=== PATIENT | female | born 1940 | race Caucasian/White ===

== ENCOUNTER 2016-07-31 20:52 | Inpatient (IN) | payer OTHER, MEDICARE ==
[~2016-07-31] VITALS: Ht 149.9 cm; Wt 51.0 kg
[~2016-07-31 20:52] MED LIST: CLARITIN10 M3 PO; COLACE100 MG PO; CYANOCOBAL1000 MCG/2 IM; CYANOCOBALAM1000 MCG PO; GABAPENTIN100 MG PO; LEUCOVORIN CALCI5 MG PO; METHOTREXATE2.5 MG PO; MUCINEX600 MG PO; MULTI-DELYN473 M1 PO; PANTOPRAZOLE SO40 MG PO; PROLIA60 MG/1 ML SC; TACROLIMUS ANH0.5 MG PO; TACROLIMUS ANHYD1 MG PO; TRAMADOL HCL50 MG PO; TYLENOL REGULA325 MG PO; VITAMIN D-32000 UNI2 PO; ZOFRAN4 MG PO; ZOFRAN8 MG PO
[2016-07-31 21:47] LABS: MCHC 31.9 G/DL (30.0-36.0); MCV 100.4 FL (83-99); MEAN PLAT.VOLUME 11.3 uM^3 (9.5-12.4); PLATELET COUNT 80 K/uL (156-360); RBC DIS.WIDTH-CV 15.9 % (11.8-14.6); RBC DIS.WIDTH-SD 57.8 % (39-53); RED BLOOD COUNT 2.59 M/uL (3.80-5.20); WHITE BLOOD COUNT 4.3 K/uL (4.1-10.2)
[2016-07-31 21:59] LABS: CHLORIDE 109 mEq/L (99-109); POTASSIUM 4.8 mEq/L (3.7-5.4); SODIUM 139 mEq/L (136-147)
[2016-07-31 22:01] LABS: GLUCOSE 93 mg/dL (70-99)
[2016-07-31 22:02] LABS: ANION GAP 13 MEQ/L (2-14)
[2016-07-31 22:03] LABS: TOTAL BILIRUBIN 0.6 mg/dL (0.0-1.0)
[2016-07-31 22:04] LABS: ALKALINE PHOSPHATASE 66 IU/L (3-129)
[2016-07-31 22:05] LABS: GFR ESTIMATE (CALCULATED) 9 mL/min/
[2016-07-31 22:06] LABS: UREA NITROGEN (BUN) 81 mg/dL (9-23)
[2016-07-31 22:09] LABS: TROP-I INTERPRETATION NEGATIVE; TROPONIN-I 0.02 ng/mL (0.0-0.30)
[2016-07-31 23:47] LABS: ADD MIUA? YES; BILIRUBIN NEGATIVE; BLOOD MODERATE; COLOR YELLOW ((YELLOW)); GLUCOSE (STRIP) NEGATIVE; KETONES NEGATIVE; LEUKOCYTES SMALL; NITRITE NEGATIVE; PROTEIN (STRIP) 100; SPECIFIC GRAVITY 1.012 (1.000-1.030); UROBILINOGEN 0.2 MG/DL (0.2-1.0)
[2016-07-31] MEDS ORDERED: VITAMIN B-1000 MCG/1 PO (23:55)
[2016-07-31] MEDS ORDERED: VITAMIN D33000 UNIT PO (23:56)
[2016-07-31] MEDS ORDERED: CYCLOSPORINE25 M3 PO (23:59)
[2016-07-31] MEDS ORDERED: NULOJIX250 MG IV (23:59)
[2016-08-01] VITALS (13 sets, daily range): BP systolic 90–164; BP diastolic 55–89
[2016-08-01] LABS: BACTERIA NONE SEEN /HPF; EPITHELIAL CELLS RARE /HPF; HYALINE CASTS 0-5 /LPF; MUCUS NONE SEEN /LPF; RED BLOOD CELLS 0-5 /HPF (0-5); UCUL ADDED? NO; WHITE BLOOD CELLS 30-40 /HPF (0-5)
[2016-08-01] MEDS ORDERED: CARVEDILOL3.125 MG PO
[2016-08-01] MEDS ORDERED: CLONIDINE HCL0.1 MG PO
[2016-08-01] MEDS ORDERED: METOPROLOL SUCC25 MG PO
[2016-08-01 03:50] LABS: INFLUENZA A VIRAL ANTIGEN NEGATIVE; INFLUENZA B VIRAL ANTIGEN NEGATIVE
[2016-08-01 07:32] LABS: EOSINOPHIL COUNT 0.3 K/uL (0-0.3); HEMATOCRIT 21.1 % (36.0-46.0); IMMATURE GRANULOCYTE (%) 0.8 % (0.0-0.7); INSTRUMENT ABS NEUTROPHIL CT 1.4 K/uL; LYMPHOCYTE COUNT 1.9 K/uL (1.0-2.8); MCH 33.3 PG (29.0-34.0); MCHC 32.2 G/DL (30.0-36.0); MCV 103.4 FL (83-99); MEAN PLAT.VOLUME 11.1 uM^3 (9.5-12.4); MONOCYTE (%) 1.9 % (3-12); MONOCYTE COUNT 0.1 K/uL (0-0.8); NEUTROPHIL (%) 38.5 % (45-76); NEUTROPHIL COUNT 1.4 K/uL (1.8-6.4); PLATELET COUNT 64 K/uL (156-360); RBC DIS.WIDTH-SD 59.4 % (39-53); WHITE BLOOD COUNT 3.7 K/uL (4.1-10.2)
[2016-08-01 07:34] LABS: RED BLOOD COUNT 2.04 M/uL (3.80-5.20)
[2016-08-01 07:37] LABS: ALKALINE PHOSPHATASE 50 IU/L (3-129); ANION GAP 9 MEQ/L (2-14); CHLORIDE 113 MEQ/L (99-109); GFR ESTIMATE (CALCULATED) 10 mL/min/; GLUCOSE 93 mg/dL (70-99); POTASSIUM 4.5 MEQ/L (3.7-5.4); SAMPLE HEMOLYSIS CHECK 0; SAMPLE ICTERIC CHECK 0; SAMPLE LIPEMIA CHECK 0; SODIUM 141 MEQ/L (136-147); TOTAL BILIRUBIN 0.4 MG/DL (0.0-1.0); UREA NITROGEN (BUN) 72 mg/dL (9-23)
[2016-08-01 08:47] LABS: INTERNAL CONTROL VALID? YES
[2016-08-01 15:14] LABS: METH RESISTANT S AUREUS PCR NEGATIVE (NEGATIVE)
[2016-08-01 15:17] LABS: PROBE CHECK PASS; SPECIMEN PROCESSING CONTROL PASS
[2016-08-02 00:35] LABS: HEMATOCRIT 32.3 % (36.0-46.0); MCV 94.4 FL (83-99)
[2016-08-02 05:47] LABS: HEMATOCRIT 32.3 % (36.0-46.0); MCHC 32.5 G/DL (30.0-36.0); MCV 95.3 FL (83-99); MEAN PLAT.VOLUME 11.2 uM^3 (9.5-12.4); PLATELET COUNT 57 K/uL (156-360); RBC DIS.WIDTH-CV 17.2 % (11.8-14.6); RBC DIS.WIDTH-SD 58.8 % (39-53); WHITE BLOOD COUNT 3.3 K/uL (4.1-10.2)
[2016-08-02 06:17] LABS: ANION GAP 9 MEQ/L (2-14); CHLORIDE 110 MEQ/L (99-109); GFR ESTIMATE (CALCULATED) 10 mL/min/; GLOBULINS 2.7 G/DL (2.3-3.5); GLUCOSE 86 mg/dL (70-99); IRON 47 MCG/DL (35-150); POTASSIUM 3.9 MEQ/L (3.7-5.4); SAMPLE HEMOLYSIS CHECK 0; SAMPLE ICTERIC CHECK 0; SAMPLE LIPEMIA CHECK 0; SODIUM 136 MEQ/L (136-147); UREA NITROGEN (BUN) 66 mg/dL (9-23)
[2016-08-02 06:25] LABS: RED BLOOD COUNT 3.39 M/uL (3.80-5.20)
[2016-08-02 08:15] LABS: ABS NEUTROPHIL COUNT 1.9; ANISOCYTOSIS 1+; ATYPICAL LYMPHOCYTE 5.2 %; BASOPHILS 1.7 %; BURR CELLS 3+; EOSINOPHIL ABS CT 0.4; EOSINOPHILS 11.3 % (0-5.0); INSTRUMENT ABS NEUTROPHIL CT 1.5 K/uL; LYMPHOCYTES 24.4 % (15.0-45.0); MACROCYTES 1+; NUCLEATED RBC'S 1.7; OVALOCYTES 2+; PLAT.SUFFICIENCY DECREASED; POIKILOCYTOSIS 3+; SEG.NEUTROPHILS 56.5 % (46.0-76.0); SMUDGE CELLS 15.7; TEAR DROP CELLS 1+
[2016-08-02 08:40] VITALS: BP 168/77
[2016-08-02 08:45] LABS: FERRITIN 207 NG/ML (10-291)
[2016-08-02 08:48] LABS: VANCOMYCIN, TROUGH 9.7 MCG/ML (10-20)
[2016-08-02 13:13] VITALS: BP 134/81
[2016-08-02 16:21] LABS: C DIFF TOXIN NEGATIVE (NEGATIVE)
[2016-08-02 16:32] LABS: PROBE CHECK PASS; SPECIMEN PROCESSING CONTROL PASS
[2016-08-02 20:00] VITALS: BP 148/77
[2016-08-03] VITALS: BP 142/70
[2016-08-03 07:56] VITALS: BP 136/71
[2016-08-03 09:46] LABS: HEMATOCRIT 35.4 % (36.0-46.0); MCH 31.9 PG (29.0-34.0); MCHC 34.5 G/DL (30.0-36.0); MCV 92.4 FL (83-99); MEAN PLAT.VOLUME 11.3 uM^3 (9.5-12.4); PLATELET COUNT 51 K/uL (156-360); RBC DIS.WIDTH-SD 55.7 % (39-53); RED BLOOD COUNT 3.83 M/uL (3.80-5.20)
[2016-08-03 10:05] LABS: WHITE BLOOD COUNT 5.9 K/uL (4.1-10.2)
[2016-08-03 10:52] LABS: ANION GAP 17 MEQ/L (2-14); CHLORIDE 108 MEQ/L (99-109); GFR ESTIMATE (CALCULATED) 11 mL/min/; GLUCOSE 94 mg/dL (70-99); SAMPLE HEMOLYSIS CHECK 0; SAMPLE ICTERIC CHECK 0; SAMPLE LIPEMIA CHECK 0; SODIUM 139 MEQ/L (136-147); UREA NITROGEN (BUN) 62 mg/dL (9-23)
[2016-08-03 12:08] LABS: BASE EXCESS -6.4 mEq/L (-3 to +3); BICARBONATE 18.1 mEq/L (22-26); METHEMOGLOBIN 1.4 % (0-1.5); PCO2 32 mm Hg (35-45); PO2 74 mm Hg (80-100); pH 7.36 (7.35-7.45)
[2016-08-03 12:09] LABS: COMMENTS - BLOOD GASES A+C+; FI02 0.21 %; SITE RR; TOTAL RESP RATE 16 resp/min
[2016-08-03 13:42] LABS: INTERNAL CONTROL VALID? YES
[2016-08-03 14:59] VITALS: BP 129/71
[2016-08-03 20:00] VITALS: BP 128/72
[2016-08-04] VITALS: BP 126/74
[2016-08-04 07:57] VITALS: BP 136/78
[2016-08-04 09:42] LABS: HEMATOCRIT 34.3 % (36.0-46.0); MCH 30.5 PG (29.0-34.0); MCHC 32.4 G/DL (30.0-36.0); MCV 94.2 FL (83-99); MEAN PLAT.VOLUME 11.6 uM^3 (9.5-12.4); PLATELET COUNT 57 K/uL (156-360); RBC DIS.WIDTH-CV 16.9 % (11.8-14.6); RBC DIS.WIDTH-SD 56.8 % (39-53); RED BLOOD COUNT 3.64 M/uL (3.80-5.20); WHITE BLOOD COUNT 5.4 K/uL (4.1-10.2)
[2016-08-04 10:49] LABS: ANION GAP 14 MEQ/L (2-14); CHLORIDE 107 MEQ/L (99-109); GFR ESTIMATE (CALCULATED) 10 mL/min/; GLUCOSE 77 mg/dL (70-99); POTASSIUM 4.1 MEQ/L (3.7-5.4); SAMPLE HEMOLYSIS CHECK 0; SAMPLE ICTERIC CHECK 0; SAMPLE LIPEMIA CHECK 0; SODIUM 137 MEQ/L (136-147); UREA NITROGEN (BUN) 61 mg/dL (9-23)
[2016-08-04 15:03] VITALS: BP 128/62
[2016-08-04 19:24] VITALS: BP 134/78
[2016-08-05 06:13] LABS: HEMATOCRIT 33.5 % (36.0-46.0); MCH 31.7 PG (29.0-34.0); MCHC 33.7 G/DL (30.0-36.0); MCV 94.1 FL (83-99); MEAN PLAT.VOLUME 11.4 uM^3 (9.5-12.4); PLATELET COUNT 59 K/uL (156-360); RBC DIS.WIDTH-SD 56.9 % (39-53); RED BLOOD COUNT 3.56 M/uL (3.80-5.20); WHITE BLOOD COUNT 5.5 K/uL (4.1-10.2)
[2016-08-05 06:38] LABS: ANION GAP 13 MEQ/L (2-14); CHLORIDE 104 MEQ/L (99-109); GFR ESTIMATE (CALCULATED) 10 mL/min/; GLUCOSE 83 mg/dL (70-99); POTASSIUM 4.4 MEQ/L (3.7-5.4); SAMPLE HEMOLYSIS CHECK 0; SAMPLE ICTERIC CHECK 0; SAMPLE LIPEMIA CHECK 0; SODIUM 137 MEQ/L (136-147); UREA NITROGEN (BUN) 61 mg/dL (9-23)
[2016-08-05 07:54] VITALS: BP 123/74; BP 147/83
[2016-08-05 14:03] LABS: ALBUMIN 2.97 G/DL (3.6-4.9)
[2016-08-05 14:04] LABS: ALPHA-1 GLOBULIN 0.27 G/DL (0.15-0.40); ALPHA-1 PERCENT 4.9 %; ALPHA-2 GLOBULIN 0.72 G/DL (0.45-0.85); ALPHA-2 PERCENT 13.1 %; BETA PERCENT 12.6 %; GAMMA PERCENT 15.4 %; SERUM GEL NO. 61-6
[2016-08-05 16:08] VITALS: BP 108/67
[2016-08-05 23:31] VITALS: BP 140/96
[2016-08-06 07:54] VITALS: BP 133/71
[2016-08-06 10:10] LABS: ANION GAP 16 MEQ/L (2-14); CHLORIDE 102 MEQ/L (99-109); GFR ESTIMATE (CALCULATED) 10 mL/min/; GLUCOSE 76 mg/dL (70-99); POTASSIUM 4.4 MEQ/L (3.7-5.4); SAMPLE HEMOLYSIS CHECK 0; SAMPLE ICTERIC CHECK 0; SAMPLE LIPEMIA CHECK 0; SODIUM 138 MEQ/L (136-147); UREA NITROGEN (BUN) 65 mg/dL (9-23)
[2016-08-06 13:09] LABS: IFE GEL NO. 59-1
[2016-08-06 15:04] LABS: ANION GAP 14 MEQ/L (2-14); CHLORIDE 102 MEQ/L (99-109); GFR ESTIMATE (CALCULATED) 10 mL/min/; POTASSIUM 4.6 MEQ/L (3.7-5.4); SAMPLE HEMOLYSIS CHECK 0; SAMPLE ICTERIC CHECK 0; SAMPLE LIPEMIA CHECK 0; SODIUM 137 MEQ/L (136-147); UREA NITROGEN (BUN) 68 mg/dL (9-23)
[2016-08-06 15:07] LABS: GLUCOSE 105 mg/dL (70-99)
[2016-08-06 15:30] VITALS: BP 136/70
[2016-08-06 23:30] VITALS: BP 115/55
[2016-08-07 07:35] LABS: ANION GAP 17 MEQ/L (2-14); CHLORIDE 101 MEQ/L (99-109); GFR ESTIMATE (CALCULATED) 9 mL/min/; GLUCOSE 79 mg/dL (70-99); POTASSIUM 4.9 MEQ/L (3.7-5.4); SAMPLE HEMOLYSIS CHECK 0; SAMPLE ICTERIC CHECK 0; SAMPLE LIPEMIA CHECK 0; SODIUM 137 MEQ/L (136-147); UREA NITROGEN (BUN) 72 mg/dL (9-23)
[2016-08-07 07:40] LABS: HEMATOCRIT 32.9 % (36.0-46.0); MCH 30.7 PG (29.0-34.0); MCHC 32.5 G/DL (30.0-36.0); MCV 94.5 FL (83-99); MEAN PLAT.VOLUME 11.6 uM^3 (9.5-12.4); RBC DIS.WIDTH-CV 16.7 % (11.8-14.6); RBC DIS.WIDTH-SD 57.2 % (39-53); RED BLOOD COUNT 3.48 M/uL (3.80-5.20)
[2016-08-07 07:42] LABS: PLATELET COUNT 109 K/uL (156-360); WHITE BLOOD COUNT 7.7 K/uL (4.1-10.2)
[2016-08-07 07:52] LABS: INTACT PARATHYROID HORMONE 390 pg/mL (10-69)
[2016-08-07 08:08] VITALS: BP 103/61
[2016-08-07 11:20] LABS: AHBS INDEX 0.62; HEPATITIS B SURFACE ANTIBODY Nonreactive; HPCA INDEX 0.09
[2016-08-07 11:36] LABS: ANTI-HEPATITIS B CORE (TOTAL) Nonreactive; HBCT INDEX 0.08
[2016-08-07 13:30] VITALS: BP 124/71
[2016-08-07 23:55] VITALS: BP 99/57
[2016-08-08 03:50] VITALS: BP 104/59
[2016-08-08 08:00] VITALS: BP 116/58
[2016-08-08 08:55] LABS: CHLORIDE 101 mEq/L (99-109); SODIUM 138 mEq/L (136-147)
[2016-08-08 08:57] LABS: POTASSIUM 3.7 mEq/L (3.7-5.4)
[2016-08-08 08:58] LABS: GLUCOSE 137 mg/dL (70-99)
[2016-08-08 08:59] LABS: ANION GAP 13 MEQ/L (2-14)
[2016-08-08 09:01] LABS: GFR ESTIMATE (CALCULATED) 11 mL/min/
[2016-08-08 09:02] LABS: UREA NITROGEN (BUN) 43 mg/dL (9-23)
[2016-08-08 16:03] VITALS: BP 120/64
[2016-08-08 19:59] VITALS: BP 106/69
[2016-08-08 23:48] VITALS: BP 116/65
[2016-08-09 03:42] VITALS: BP 110/56
[2016-08-09 06:07] LABS: ANION GAP 10 MEQ/L (2-14); CHLORIDE 99 MEQ/L (99-109); GFR ESTIMATE (CALCULATED) 13 mL/min/; GLUCOSE 117 mg/dL (70-99); SAMPLE HEMOLYSIS CHECK 0; SAMPLE ICTERIC CHECK 0; SAMPLE LIPEMIA CHECK 0; SODIUM 137 MEQ/L (136-147); UREA NITROGEN (BUN) 26 mg/dL (9-23)
[2016-08-09 08:11] VITALS: BP 110/69
[2016-08-09 11:26] LABS: NRBC (%) 0.5 /100 WBC (0-0)
[2016-08-09 11:57] LABS: ABS NEUTROPHIL COUNT 4.2; ANISOCYTOSIS 1+; EOSINOPHIL ABS CT 0; HEMATOCRIT 31.9 % (36.0-46.0); MACROCYTES 1+; MCH 31.1 PG (29.0-34.0); MCHC 31.3 G/DL (30.0-36.0); MCV 99.1 FL (83-99); METAMYELOCYTES 1.8 %; OVALOCYTES 1+; PLAT.SUFFICIENCY ADEQUATE; PLATELET COUNT 208 K/uL (156-360); POIKILOCYTOSIS 1+; RBC DIS.WIDTH-SD 60.6 % (39-53); RED BLOOD COUNT 3.22 M/uL (3.80-5.20); SEG.NEUTROPHILS 55.3 % (46.0-76.0); SMUDGE CELLS 20.5; WHITE BLOOD COUNT 6.6 K/uL (4.1-10.2)
[2016-08-09 12:07] VITALS: BP 123/74
[2016-08-09 20:41] VITALS: BP 128/70
[2016-08-10 04:08] VITALS: BP 122/62
[2016-08-10 08:00] VITALS: BP 114/58
[2016-08-10 11:23] VITALS: BP 109/88
[2016-08-10 16:48] VITALS: BP 123/62
[2016-08-10 23:16] VITALS: BP 119/67
[2016-08-11 02:46] VITALS: BP 130/71
[2016-08-11 08:27] VITALS: BP 129/80
[2016-08-11 08:40] LABS: HEMATOCRIT 33.6 % (36.0-46.0); MCH 31.4 PG (29.0-34.0); MCHC 31.5 G/DL (30.0-36.0); MCV 99.4 FL (83-99); MEAN PLAT.VOLUME 10.8 uM^3 (9.5-12.4); NRBC (%) 0.5 /100 WBC (0-0); RBC DIS.WIDTH-CV 17.2 % (11.8-14.6); RBC DIS.WIDTH-SD 61.2 % (39-53); RED BLOOD COUNT 3.38 M/uL (3.80-5.20)
[2016-08-11 08:41] LABS: PLATELET COUNT 306 K/uL (156-360); WHITE BLOOD COUNT 9.2 K/uL (4.1-10.2)
[2016-08-11 08:51] LABS: ANION GAP 11 MEQ/L (2-14); CHLORIDE 94 MEQ/L (99-109); GFR ESTIMATE (CALCULATED) 10 mL/min/; POTASSIUM 4.2 MEQ/L (3.7-5.4); SAMPLE HEMOLYSIS CHECK 0; SAMPLE ICTERIC CHECK 0; SAMPLE LIPEMIA CHECK 0; SODIUM 133 MEQ/L (136-147); UREA NITROGEN (BUN) 27 mg/dL (9-23)
[2016-08-11 08:55] LABS: GLUCOSE 78 mg/dL (70-99)
[2016-08-11 11:38] VITALS: BP 132/78
[2016-08-11 17:22] VITALS: BP 136/89
[2016-08-11 23:42] VITALS: BP 123/61
[2016-08-12 03:58] VITALS: BP 128/67
[2016-08-12 08:57] LABS: HEMATOCRIT 29.4 % (36.0-46.0); MCH 30.6 PG (29.0-34.0); MCHC 31.3 G/DL (30.0-36.0); MCV 97.7 FL (83-99); MEAN PLAT.VOLUME 10.4 uM^3 (9.5-12.4); NRBC (%) 0.5 /100 WBC (0-0); PLATELET COUNT 285 K/uL (156-360); RBC DIS.WIDTH-CV 17.2 % (11.8-14.6); RBC DIS.WIDTH-SD 59.9 % (39-53); RED BLOOD COUNT 3.01 M/uL (3.80-5.20)
[2016-08-12 08:58] LABS: WHITE BLOOD COUNT 6.4 K/uL (4.1-10.2)
[2016-08-12 09:39] LABS: ANION GAP 9 MEQ/L (2-14); CHLORIDE 97 MEQ/L (99-109); GFR ESTIMATE (CALCULATED) 9 mL/min/; SAMPLE HEMOLYSIS CHECK 0; SAMPLE ICTERIC CHECK 0; SAMPLE LIPEMIA CHECK 0; SODIUM 134 MEQ/L (136-147); UREA NITROGEN (BUN) 33 mg/dL (9-23)
[2016-08-12 09:41] LABS: GLUCOSE 109 mg/dL (70-99)
[2016-08-12 12:59] VITALS: BP 152/71
[2016-08-12 16:09] VITALS: BP 113/69
[2016-08-12 20:00] VITALS: BP 116/68
[2016-08-12 23:20] VITALS: BP 102/73
[2016-08-13 04:39] VITALS: BP 110/68
[2016-08-13 08:29] VITALS: BP 120/71
[2016-08-13 12:08] VITALS: BP 118/68
[2016-08-13] MEDS ORDERED: ARANESP60 MCG/0.3 IV (12:42)
[2016-08-13] MEDS ORDERED: ACYCLOVIR200 MG PO (12:43)
[2016-08-13] MEDS ORDERED: MYCOSTATIN 100,60 ML PO (12:43)
[2016-08-13] MEDS ORDERED: FUROSEMIDE40 MG PO (12:44)
[2016-08-13] MEDS ORDERED: FLORASTOR250 MG PO (12:45)
[2016-08-13] MEDS ORDERED: LOPERAMIDE2 MG PO (12:45)
[2016-08-13] MEDS ORDERED: TACROLIMUS ANH0.5 MG PO (12:46)
[2016-08-13] MEDS ORDERED: FAMOTIDINE20 MG PO (12:46)
== END 2016-08-13 16:24 | DRG 682 ==
LOC: EME 20:52 → EDOF 23:22 → 5SOUTH 23:22
PROVIDERS: Emergency Medicine; Internal Medicine; Nurse Practitioner Adult Health; Physician Assistant Medical
PROC: 5A1D60Z (ICD-10-PCS; principal; 2016-08-07)
PROC: 02HV33Z Insertion of Infusion Device into Superior Vena Cava, Percutaneous Approach (ICD-10-PCS; principal; 2016-08-07)
DX: N17.9 Acute kidney failure, unspecified (principal); T45.1X5A Adverse effect of antineoplastic and immunosuppressive drugs, initial encounter; J18.9 Pneumonia, unspecified organism; I12.0 Hypertensive chronic kidney disease with stage 5 chronic kidney disease or end stage renal disease; E11.22 Type 2 diabetes mellitus with diabetic chronic kidney disease; N18.6 End stage renal disease; D61.818 Other pancytopenia; E78.00 Pure hypercholesterolemia, unspecified; R64 Cachexia; Z94.2 Lung transplant status; E78.5 Hyperlipidemia, unspecified; Z96.641 Presence of right artificial hip joint; D62 Acute posthemorrhagic anemia; J84.10 Pulmonary fibrosis, unspecified; E87.2 Acidosis; N93.9 Abnormal uterine and vaginal bleeding, unspecified; N85.00 Endometrial hyperplasia, unspecified; D61.811 Other drug-induced pancytopenia
CPT/HCPCS: 36600; 71010; 71020; 71250; 74000; 76856; 80048; 80048 91; 80053; 80069; 80158 90; 80202; 81003; 82272; 82607; 82728; 82746; 82803; 83540; 83605; 83883 90; 83970; 84165; 84466; 84484; 85014; 85018; 85025; 85027; 86334; 86704; 86706; 86803; 86900; 86901; 86920; 87040; 87070; 87106; 87205; 87340; 87449; 87493; 87502; 87506; 87641; 93005; 93970; 94799; 99202; 99281; 99285; C1750; C1894; J0456; J0690; J0692; J0881; J1270; J1644; J1650; J1940; J2250; J2405; J2997; J3010; J3370; J7030; J7040; J7050; J7507; J7515; P9016; P9047; S0020

== ENCOUNTER 2016-09-03 07:29 | Day surgery (SDC) | payer OTHER, MEDICARE ==
[~2016-09-03] VITALS: Ht 149.9 cm; Wt 53.0 kg
[~2016-09-03 07:29] MED LIST changes: +ACYCLOVIR200 MG PO; +ARANESP60 MCG/0.3 IV; +CARVEDILOL3.125 MG PO; +CLONIDINE HCL0.1 MG PO; +CYCLOSPORINE25 M3 PO; +FAMOTIDINE20 MG PO; +FLORASTOR250 MG PO; +FUROSEMIDE40 MG PO; +LOPERAMIDE2 MG PO; +METOPROLOL SUCC25 MG PO; +MYCOSTATIN 100,60 ML PO; +NULOJIX250 MG IV; +VITAMIN B-1000 MCG/1 PO; +VITAMIN D33000 UNIT PO
[2016-09-03 10:03] LABS: METH RESISTANT S AUREUS PCR NEGATIVE (NEGATIVE); PROBE CHECK PASS; SPECIMEN PROCESSING CONTROL PASS
[2016-09-09] MEDS ORDERED: MIDODRINE HCL5 MG PO (10:33)
== END 2016-09-03 10:42 ==
LOC: CATH 07:29
PROVIDERS: Surgery
DX: T82.41XA Breakdown (mechanical) of vascular dialysis catheter, initial encounter (principal); I12.9 Hypertensive chronic kidney disease with stage 1 through stage 4 chronic kidney disease, or unspecified chronic kidney disease; N18.9 Chronic kidney disease, unspecified; Z99.2 Dependence on renal dialysis; D61.818 Other pancytopenia; E78.5 Hyperlipidemia, unspecified; Z94.2 Lung transplant status; Z92.25 Personal history of immunosuppression therapy; I25.10 Atherosclerotic heart disease of native coronary artery without angina pectoris; Z95.5 Presence of coronary angioplasty implant and graft; Z88.8 Allergy status to other drugs, medicaments and biological substances; Y84.8 Other medical procedures as the cause of abnormal reaction of the patient, or of later complication, without mention of misadventure at the time of the procedure
CPT/HCPCS: 87641; C1750; J0690; J1644; J2250; J3010; S0020

== ENCOUNTER 2016-09-10 08:21 | Day surgery (SDC) | payer OTHER, MEDICARE ==
[~2016-09-10 08:21] MED LIST changes: +MIDODRINE HCL5 MG PO
[2016-09-10 10:47] LABS: METH RESISTANT S AUREUS PCR NEGATIVE (NEGATIVE)
[2016-09-10 10:53] LABS: PROBE CHECK PASS; SPECIMEN PROCESSING CONTROL PASS
== END 2016-09-10 12:20 ==
LOC: CATH 08:21
PROVIDERS: Surgery
DX: T82.524A Displacement of infusion catheter, initial encounter (principal); I12.0 Hypertensive chronic kidney disease with stage 5 chronic kidney disease or end stage renal disease; N18.6 End stage renal disease; Z99.2 Dependence on renal dialysis; Z88.6 Allergy status to analgesic agent; Z88.8 Allergy status to other drugs, medicaments and biological substances; Y83.1 Surgical operation with implant of artificial internal device as the cause of abnormal reaction of the patient, or of later complication, without mention of misadventure at the time of the procedure
CPT/HCPCS: 87641; C1750; J0690; J1644; J2250; J2405; J3010; S0020

== ENCOUNTER 2016-09-30 10:33 | Inpatient (IN) | payer OTHER, MEDICARE ==
[~2016-09-30] VITALS: Ht 144.8 cm; Wt 52.6 kg
[2016-09-30 12:07] VITALS: BP 161/88
[2016-09-30 12:17] LABS: HEMATOCRIT 28.9 % (36.0-46.0); MCH 33.8 PG (29.0-34.0); MCHC 30.4 G/DL (30.0-36.0); MCV 111.2 FL (83-99); MEAN PLAT.VOLUME 10.4 uM^3 (9.5-12.4); PLATELET COUNT 117 K/uL (156-360); WHITE BLOOD COUNT 7.7 K/uL (4.1-10.2)
[2016-09-30 12:27] LABS: METH RESISTANT S AUREUS PCR NEGATIVE (NEGATIVE)
[2016-09-30 12:28] LABS: PROBE CHECK PASS; SPECIMEN PROCESSING CONTROL PASS
[2016-09-30 20:48] VITALS: BP 131/58
[2016-09-30 23:45] VITALS: BP 108/53
[2016-10-01 04:36] VITALS: BP 134/62
[2016-10-01 07:00] VITALS: BP 131/62
[2016-10-01 10:50] VITALS: BP 129/59
[2016-10-01 11:04] LABS: ANION GAP 10 MEQ/L (2-14); CHLORIDE 105 MEQ/L (99-109); POTASSIUM 4.1 MEQ/L (3.7-5.4); SAMPLE HEMOLYSIS CHECK 0; SAMPLE ICTERIC CHECK 0; SAMPLE LIPEMIA CHECK 0; SODIUM 144 MEQ/L (136-147)
[2016-10-01 11:10] LABS: GFR ESTIMATE (CALCULATED) 18 mL/min/; GLUCOSE 94 mg/dL (70-99); UREA NITROGEN (BUN) 15 mg/dL (9-23)
[2016-10-01 15:52] VITALS: BP 154/69
[2016-10-01 19:34] VITALS: BP 133/61
[2016-10-02 00:01] VITALS: BP 136/61
[2016-10-02 03:48] VITALS: BP 136/99
[2016-10-02 07:52] VITALS: BP 133/64
[2016-10-02] MEDS ORDERED: TRAMADOL HCL50 MG PO (09:24)
[2016-10-02] MEDS ORDERED: NITROPASTE 2%1 GM TD (09:24)
[2016-10-02 09:39] LABS: ANION GAP 11 MEQ/L (2-14); CHLORIDE 102 MEQ/L (99-109); GFR ESTIMATE (CALCULATED) 13 mL/min/; GLUCOSE 86 mg/dL (70-99); SAMPLE HEMOLYSIS CHECK 2; SAMPLE ICTERIC CHECK 0; SAMPLE LIPEMIA CHECK 0; SODIUM 137 MEQ/L (136-147); UREA NITROGEN (BUN) 22 mg/dL (9-23)
[2016-10-02 09:40] LABS: POTASSIUM ND MEQ/L (3.7-5.4)
[2016-10-02 11:44] VITALS: BP 139/71
== END 2016-10-02 15:10 | DRG 673 ==
LOC: SDC 10:33 → 2SOUTH 15:00 → 2EAST 15:00 → 2SOUTH 15:00 → SDC 16:23 → 2EAST 18:03
PROVIDERS: Internal Medicine Nephrology; Surgery
PROC: 03180JD Bypass Left Brachial Artery to Upper Arm Vein with Synthetic Substitute, Open Approach (ICD-10-PCS; principal; 2016-09-30)
PROC: 03C80ZZ Extirpation of Matter from Left Brachial Artery, Open Approach (ICD-10-PCS; 2016-10-01)
DX: I12.0 Hypertensive chronic kidney disease with stage 5 chronic kidney disease or end stage renal disease (principal); D61.811 Other drug-induced pancytopenia; N18.6 End stage renal disease; T82.898A Other specified complication of vascular prosthetic devices, implants and grafts, initial encounter; I97.638 Postprocedural hematoma of a circulatory system organ or structure following other circulatory system procedure; Z94.2 Lung transplant status; G89.18 Other acute postprocedural pain; E78.5 Hyperlipidemia, unspecified; I25.10 Atherosclerotic heart disease of native coronary artery without angina pectoris; Z99.2 Dependence on renal dialysis; Z98.61 Coronary angioplasty status; Z87.01 Personal history of pneumonia (recurrent); Y83.2 Surgical operation with anastomosis, bypass or graft as the cause of abnormal reaction of the patient, or of later complication, without mention of misadventure at the time of the procedure; Y92.238 Other place in hospital as the place of occurrence of the external cause; Z88.1 Allergy status to other antibiotic agents; Z88.5 Allergy status to narcotic agent; Z88.6 Allergy status to analgesic agent; Y92.530 Ambulatory surgery center as the place of occurrence of the external cause
CPT/HCPCS: 80048; 84999; 85027; 87641; C1768; G0378; J0131; J0360; J0690; J1170; J1644; J2405; J2720; J2765; J3010; J7507

== ENCOUNTER → 2016-10-14 | Outpatient (CLI) | payer OTHER, MEDICARE ==
[~2016-10-14] MED LIST changes: +LASIX40 MG PO; +NITROPASTE 2%1 GM TD; +PEPCID20 MG PO; +PROGRAF0.5 MG PO
== END | disposition home or self-care (01) ==
LOC: AMB 08:45
PROC: 02PYX3Z Removal of Infusion Device from Great Vessel, External Approach (ICD-10-PCS; principal; 2016-10-14)
DX: Z45.2 Encounter for adjustment and management of vascular access device (principal)

== ENCOUNTER 2016-10-16 17:49 | Inpatient (IN) | payer OTHER, MEDICARE ==
[~2016-10-16] VITALS: Ht 149.9 cm; Wt 49.4 kg
[~2016-10-16 17:49] MED LIST changes: -LASIX40 MG PO; -PEPCID20 MG PO; -PROGRAF0.5 MG PO
[2016-10-16 20:17] LABS: CHLORIDE 102 mEq/L (99-109); POTASSIUM 3.6 mEq/L (3.7-5.4); SODIUM 140 mEq/L (136-147)
[2016-10-16 20:18] LABS: HEMATOCRIT 19.2 % (36.0-46.0); MCH 34.3 PG (29.0-34.0); MCHC 29.7 G/DL (30.0-36.0); MEAN PLAT.VOLUME 9.8 uM^3 (9.5-12.4); NRBC (%) 0.1 /100 WBC (0-0); PLATELET COUNT 135 K/uL (156-360); RBC DIS.WIDTH-CV 18.5 % (11.8-14.6); RBC DIS.WIDTH-SD 79.5 % (39-53); WHITE BLOOD COUNT 20.7 K/uL (4.1-10.2)
[2016-10-16 20:19] LABS: GLUCOSE 120 mg/dL (70-99); MCV 115.7 FL (83-99); RED BLOOD COUNT 1.66 M/uL (3.80-5.20)
[2016-10-16 20:21] LABS: ANION GAP 6 MEQ/L (2-14)
[2016-10-16 20:23] LABS: GFR ESTIMATE (CALCULATED) 33 mL/min/
[2016-10-16 20:24] LABS: UREA NITROGEN (BUN) 14 mg/dL (9-23)
[2016-10-16 21:47] LABS: HEMATOCRIT 20.4 % (36.0-46.0); MCH 34.1 PG (29.0-34.0); MCHC 29.4 G/DL (30.0-36.0); MCV 115.9 FL (83-99); MEAN PLAT.VOLUME 9.8 uM^3 (9.5-12.4); NRBC (%) 0.1 /100 WBC (0-0); PLATELET COUNT 139 K/uL (156-360); RBC DIS.WIDTH-CV 18.6 % (11.8-14.6); RBC DIS.WIDTH-SD 80.7 % (39-53); RED BLOOD COUNT 1.76 M/uL (3.80-5.20); WHITE BLOOD COUNT 20.6 K/uL (4.1-10.2)
[2016-10-16] MEDS ORDERED: LASIX40 MG PO (22:23)
[2016-10-16] MEDS ORDERED: PEPCID20 MG PO (22:24)
[2016-10-16] MEDS ORDERED: FLORASTOR250 MG PO (22:25)
[2016-10-16] MEDS ORDERED: PROGRAF0.5 MG PO (22:50)
[2016-10-16] MEDS ORDERED: TRAMADOL HCL50 MG PO (22:53)
[2016-10-16 23:05] VITALS: BP 145/74
[2016-10-16 23:20] VITALS: BP 125/66
[2016-10-16 23:35] VITALS: BP 145/57
[2016-10-17] VITALS (12 sets, daily range): BP systolic 138–181; BP diastolic 64–84
[2016-10-17 09:47] LABS: HEMATOCRIT 29.8 % (36.0-46.0); MCH 31.9 PG (29.0-34.0); MCHC 31.5 G/DL (30.0-36.0); MEAN PLAT.VOLUME 9.4 uM^3 (9.5-12.4); NRBC (%) 0.1 /100 WBC (0-0); PLATELET COUNT 139 K/uL (156-360); RBC DIS.WIDTH-CV 26.5 % (11.8-14.6); RBC DIS.WIDTH-SD 95.4 % (39-53); WHITE BLOOD COUNT 26.2 K/uL (4.1-10.2)
[2016-10-17 09:50] LABS: RED BLOOD COUNT 2.95 M/uL (3.80-5.20)
[2016-10-17 15:21] LABS: C DIFF TOXIN POSITIVE (NEGATIVE)
[2016-10-17 15:30] LABS: HEMATOCRIT 34.5 % (36.0-46.0); MCH 32.6 PG (29.0-34.0); MCHC 31.9 G/DL (30.0-36.0); MCV 102.4 FL (83-99); MEAN PLAT.VOLUME 9.7 uM^3 (9.5-12.4); NRBC (%) 0.1 /100 WBC (0-0); PLATELET COUNT 140 K/uL (156-360); RBC DIS.WIDTH-CV 26.9 % (11.8-14.6); RBC DIS.WIDTH-SD 96.4 % (39-53); RED BLOOD COUNT 3.37 M/uL (3.80-5.20); WHITE BLOOD COUNT 26.8 K/uL (4.1-10.2)
[2016-10-17 15:34] LABS: PROBE CHECK PASS
[2016-10-18] VITALS (7 sets, daily range): BP systolic 103–172; BP diastolic 56–74
[2016-10-18 08:09] LABS: MEAN PLAT.VOLUME 10.1 uM^3 (9.5-12.4); PLATELET COUNT 157 K/uL (156-360)
[2016-10-18 08:21] LABS: HEMATOCRIT 31.2 % (36.0-46.0); MCH 31.7 PG (29.0-34.0); MCHC 31.4 G/DL (30.0-36.0); RBC DIS.WIDTH-CV 25.1 % (11.8-14.6); RED BLOOD COUNT 3.09 M/uL (3.80-5.20)
[2016-10-18 08:24] LABS: WHITE BLOOD COUNT 32.5 K/uL (4.1-10.2)
[2016-10-18 08:33] LABS: ANION GAP 10 MEQ/L (2-14); CHLORIDE 101 MEQ/L (99-109); GFR ESTIMATE (CALCULATED) 17 mL/min/; GLUCOSE 91 mg/dL (70-99); POTASSIUM 3.7 MEQ/L (3.7-5.4); SAMPLE HEMOLYSIS CHECK 0; SAMPLE ICTERIC CHECK 0; SAMPLE LIPEMIA CHECK 0; SODIUM 139 MEQ/L (136-147)
[2016-10-18 08:35] LABS: UREA NITROGEN (BUN) 28 mg/dL (9-23)
[2016-10-18 15:35] LABS: TROP-I INTERPRETATION NEGATIVE; TROPONIN-I 0.03 ng/mL (0.0-0.30)
[2016-10-18 15:41] LABS: MEAN PLAT.VOLUME 10.9 uM^3 (9.5-12.4); PLATELET COUNT 169 K/uL (156-360)
[2016-10-18 15:43] LABS: HEMATOCRIT 36.9 % (36.0-46.0); MCH 32.1 PG (29.0-34.0); MCHC 31.7 G/DL (30.0-36.0); MCV 101.4 FL (83-99); NRBC (%) 0.1 /100 WBC (0-0); RBC DIS.WIDTH-CV 25.1 % (11.8-14.6); RBC DIS.WIDTH-SD 93.3 % (39-53); RED BLOOD COUNT 3.64 M/uL (3.80-5.20)
[2016-10-18 15:44] LABS: WHITE BLOOD COUNT 37.3 K/uL (4.1-10.2)
[2016-10-18 16:19] LABS: ANION GAP 13 MEQ/L (2-14); CHLORIDE 100 MEQ/L (99-109); POTASSIUM 4.3 MEQ/L (3.7-5.4); SAMPLE HEMOLYSIS CHECK 1; SAMPLE ICTERIC CHECK 0; SAMPLE LIPEMIA CHECK 0; SODIUM 138 MEQ/L (136-147)
[2016-10-18 16:24] LABS: GFR ESTIMATE (CALCULATED) 16 mL/min/; UREA NITROGEN (BUN) 32 mg/dL (9-23)
[2016-10-18 16:27] LABS: GLUCOSE 120 mg/dL (70-99)
[2016-10-19 03:55] VITALS: BP 104/56
[2016-10-19 05:25] LABS: PLATELET COUNT 159 K/uL (156-360)
[2016-10-19 05:50] LABS: HEMATOCRIT 32.7 % (36.0-46.0); MCH 31.8 PG (29.0-34.0); MCHC 31.8 G/DL (30.0-36.0); NRBC (%) 0.1 /100 WBC (0-0); RBC DIS.WIDTH-CV 23.7 % (11.8-14.6); RBC DIS.WIDTH-SD 86.4 % (39-53); RED BLOOD COUNT 3.27 M/uL (3.80-5.20)
[2016-10-19 05:51] LABS: WHITE BLOOD COUNT 32.5 K/uL (4.1-10.2)
[2016-10-19 06:00] LABS: ANION GAP 11 MEQ/L (2-14); CHLORIDE 101 MEQ/L (99-109); GFR ESTIMATE (CALCULATED) 13 mL/min/; GLUCOSE 97 mg/dL (70-99); POTASSIUM 3.6 MEQ/L (3.7-5.4); SAMPLE HEMOLYSIS CHECK 0; SAMPLE ICTERIC CHECK 0; SAMPLE LIPEMIA CHECK 0; SODIUM 138 MEQ/L (136-147); UREA NITROGEN (BUN) 38 mg/dL (9-23)
[2016-10-19 11:58] VITALS: BP 98/54
[2016-10-19 16:37] LABS: ANION GAP 12 MEQ/L (2-14); CHLORIDE 102 MEQ/L (99-109); GFR ESTIMATE (CALCULATED) 12 mL/min/; GLUCOSE 121 mg/dL (70-99); POTASSIUM 3.9 MEQ/L (3.7-5.4); SAMPLE HEMOLYSIS CHECK 0; SAMPLE ICTERIC CHECK 0; SAMPLE LIPEMIA CHECK 0; SODIUM 136 MEQ/L (136-147); UREA NITROGEN (BUN) 39 mg/dL (9-23)
[2016-10-19 16:53] VITALS: BP 101/55
[2016-10-19 23:46] VITALS: BP 90/48
[2016-10-20 03:58] VITALS: BP 92/46
[2016-10-20 05:52] LABS: MEAN PLAT.VOLUME 10.4 uM^3 (9.5-12.4); PLATELET COUNT 172 K/uL (156-360)
[2016-10-20 06:17] LABS: HEMATOCRIT 29.4 % (36.0-46.0); MCH 31.7 PG (29.0-34.0); MCV 102.4 FL (83-99); NRBC (%) 0.1 /100 WBC (0-0); RBC DIS.WIDTH-CV 23.5 % (11.8-14.6); RBC DIS.WIDTH-SD 88.4 % (39-53); RED BLOOD COUNT 2.87 M/uL (3.80-5.20)
[2016-10-20 06:48] LABS: WHITE BLOOD COUNT 30.4 K/uL (4.1-10.2)
[2016-10-20 07:02] LABS: BASOPHIL COUNT 0.1 K/uL (0-0.1); EOSINOPHIL (%) 0 % (0-5); HEMATOLOGY COMMENT 1 SMEAR COMPATIBLE; IMMATURE GRANULOCYTE (%) 1.6 % (0.0-0.7); IMMATURE GRANULOCYTE COUNT 0.5 K/uL; INSTRUMENT ABS NEUTROPHIL CT 28.3 K/uL; LYMPHOCYTE COUNT 0.7 K/uL (1.0-2.8); MONOCYTE (%) 2.5 % (3-12); MONOCYTE COUNT 0.8 K/uL (0-0.8); NEUTROPHIL (%) 93.4 % (45-76); NEUTROPHIL COUNT 28.3 K/uL (1.8-6.4)
[2016-10-20 07:49] VITALS: BP 74/48
[2016-10-20 08:12] VITALS: BP 82/46
[2016-10-20 08:59] VITALS: BP 92/60
[2016-10-20 13:58] VITALS: BP 96/52
[2016-10-20 15:53] VITALS: BP 92/50
[2016-10-21 00:01] VITALS: BP 104/54
[2016-10-21 03:51] VITALS: BP 103/50
[2016-10-21 07:57] VITALS: BP 106/58
[2016-10-21 10:11] LABS: HEMATOCRIT 28.8 % (36.0-46.0); MCH 32.5 PG (29.0-34.0); MCHC 31.9 G/DL (30.0-36.0); MCV 101.8 FL (83-99); MEAN PLAT.VOLUME 10.5 uM^3 (9.5-12.4); NRBC (%) 1.4 /100 WBC (0-0); PLATELET COUNT 184 K/uL (156-360); RBC DIS.WIDTH-CV 22.4 % (11.8-14.6); RBC DIS.WIDTH-SD 83.7 % (39-53); RED BLOOD COUNT 2.83 M/uL (3.80-5.20); WHITE BLOOD COUNT 23.5 K/uL (4.1-10.2)
[2016-10-21 10:23] LABS: ANION GAP 13 MEQ/L (2-14); CHLORIDE 100 MEQ/L (99-109); POTASSIUM 4.3 MEQ/L (3.7-5.4); SAMPLE HEMOLYSIS CHECK 0; SAMPLE ICTERIC CHECK 0; SAMPLE LIPEMIA CHECK 0; SODIUM 135 MEQ/L (136-147)
[2016-10-21 10:47] LABS: GFR ESTIMATE (CALCULATED) 10 mL/min/; GLUCOSE 117 mg/dL (70-99); UREA NITROGEN (BUN) 56 mg/dL (9-23)
[2016-10-21 11:56] LABS: ABS NEUTROPHIL COUNT 22.1; ANISOCYTOSIS 3+; ATYPICAL LYMPHOCYTE 0.9 %; BAND NEUTROPHILS 9.6 % (0-8.0); EOSINOPHIL ABS CT 0; INSTRUMENT ABS NEUTROPHIL CT 20.5 K/uL; LYMPHOCYTES 1.3 % (15.0-45.0); MACROCYTES 3+; METAMYELOCYTES 0.9 %; NUCLEATED RBC'S 2.2; PLAT.SUFFICIENCY ADEQUATE; POLYCHROMASIA 1+; SEG.NEUTROPHILS 84.3 % (46.0-76.0); TARGET CELLS 1+; TEAR DROP CELLS 1+; TOXIC GRANULATION 1+
[2016-10-21 16:03] VITALS: BP 108/60
[2016-10-21 19:53] VITALS: BP 118/60
[2016-10-22 00:50] VITALS: BP 124/72
[2016-10-22 04:00] VITALS: BP 128/60
[2016-10-22 06:39] LABS: HEMATOCRIT 28.9 % (36.0-46.0); MCH 32.9 PG (29.0-34.0); MCHC 31.8 G/DL (30.0-36.0); MCV 103.2 FL (83-99); MEAN PLAT.VOLUME 10.4 uM^3 (9.5-12.4); PLATELET COUNT 146 K/uL (156-360); RBC DIS.WIDTH-CV 22.5 % (11.8-14.6); RBC DIS.WIDTH-SD 84.2 % (39-53); WHITE BLOOD COUNT 15.9 K/uL (4.1-10.2)
[2016-10-22 07:33] LABS: ANION GAP 10 MEQ/L (2-14); CHLORIDE 102 MEQ/L (99-109); GFR ESTIMATE (CALCULATED) 13 mL/min/; GLUCOSE 104 mg/dL (70-99); POTASSIUM 4.7 MEQ/L (3.7-5.4); SAMPLE HEMOLYSIS CHECK 0; SAMPLE ICTERIC CHECK 0; SAMPLE LIPEMIA CHECK 0; SODIUM 136 MEQ/L (136-147); UREA NITROGEN (BUN) 35 mg/dL (9-23)
[2016-10-22 08:18] VITALS: BP 104/58
[2016-10-22 12:20] VITALS: BP 98/56
[2016-10-22 16:30] VITALS: BP 100/58
[2016-10-22 20:05] VITALS: BP 102/58
[2016-10-22 20:13] LABS: BASE EXCESS 0.6 mEq/L (-3 to +3); BICARBONATE 26.9 mEq/L (22-26); CARBOXY HGB 1.6 % (0-5); METHEMOGLOBIN 1.4 % (0-1.5); PO2 72 mm Hg (80-100); pH 7.33 (7.35-7.45)
[2016-10-22 20:15] LABS: COMMENTS - BLOOD GASES C+A+; DEVICE NC; FI02 28 %; O2 FLOW 2 L/MIN; PCO2 51 mm Hg (35-45); SITE RR
[2016-10-23 00:13] VITALS: BP 107/53
[2016-10-23 03:44] VITALS: BP 107/51
[2016-10-23 08:00] VITALS: BP 110/56
[2016-10-23 10:07] LABS: HEMATOCRIT 30.7 % (36.0-46.0); MCHC 30.6 G/DL (30.0-36.0); MCV 104.4 FL (83-99); MEAN PLAT.VOLUME 10.7 uM^3 (9.5-12.4); NRBC (%) 4.7 /100 WBC (0-0); PLATELET COUNT 164 K/uL (156-360); RBC DIS.WIDTH-CV 22.3 % (11.8-14.6); RBC DIS.WIDTH-SD 83.7 % (39-53); RED BLOOD COUNT 2.94 M/uL (3.80-5.20); WHITE BLOOD COUNT 15.6 K/uL (4.1-10.2)
[2016-10-23 10:19] LABS: ANION GAP 9 MEQ/L (2-14); CHLORIDE 102 MEQ/L (99-109); POTASSIUM 4.7 MEQ/L (3.7-5.4); SAMPLE HEMOLYSIS CHECK 0; SAMPLE ICTERIC CHECK 0; SAMPLE LIPEMIA CHECK 0; SODIUM 135 MEQ/L (136-147)
[2016-10-23 10:26] LABS: GFR ESTIMATE (CALCULATED) 12 mL/min/; GLUCOSE 88 mg/dL (70-99); UREA NITROGEN (BUN) 45 mg/dL (9-23)
[2016-10-23 10:34] LABS: ANISOCYTOSIS 3+; EOSINOPHIL (%) 0.9 % (0-5); EOSINOPHIL COUNT 0.1 K/uL (0-0.3); IMMATURE GRANULOCYTE (%) 2.7 % (0.0-0.7); IMMATURE GRANULOCYTE COUNT 0.4 K/uL; INSTRUMENT ABS NEUTROPHIL CT 12.4 K/uL; LYMPHOCYTE COUNT 1.3 K/uL (1.0-2.8); MACROCYTES 3+; MONOCYTE (%) 8.7 % (3-12); MONOCYTE COUNT 1.4 K/uL (0-0.8); NEUTROPHIL (%) 79.3 % (45-76); NEUTROPHIL COUNT 12.4 K/uL (1.8-6.4); POIKILOCYTOSIS 1+; TOXIC GRANULATION 1+
[2016-10-23 16:35] VITALS: BP 100/59
[2016-10-23 19:51] VITALS: BP 108/56
[2016-10-23 23:50] VITALS: BP 114/54
[2016-10-24 03:38] VITALS: BP 122/60
[2016-10-24 06:37] LABS: HEMATOCRIT 30.5 % (36.0-46.0); MCH 31.6 PG (29.0-34.0); MCHC 31.1 G/DL (30.0-36.0); MCV 101.3 FL (83-99); MEAN PLAT.VOLUME 10.5 uM^3 (9.5-12.4); NRBC (%) 3.4 /100 WBC (0-0); PLATELET COUNT 188 K/uL (156-360); RBC DIS.WIDTH-CV 22.5 % (11.8-14.6); RBC DIS.WIDTH-SD 80.5 % (39-53); RED BLOOD COUNT 3.01 M/uL (3.80-5.20); WHITE BLOOD COUNT 15.6 K/uL (4.1-10.2)
[2016-10-24 07:58] VITALS: BP 123/65
[2016-10-24 12:05] VITALS: BP 118/60
[2016-10-24 16:20] VITALS: BP 126/62
[2016-10-24 20:12] VITALS: BP 136/66
[2016-10-25 00:33] VITALS: BP 118/63
[2016-10-25 04:36] VITALS: BP 130/63
[2016-10-25 08:28] VITALS: BP 124/78
[2016-10-25 10:13] LABS: HEMATOCRIT 30.6 % (36.0-46.0); MEAN PLAT.VOLUME 10.8 uM^3 (9.5-12.4); NRBC (%) 0.9 /100 WBC (0-0); PLATELET COUNT 178 K/uL (156-360); RBC DIS.WIDTH-CV 22.9 % (11.8-14.6); RBC DIS.WIDTH-SD 83.7 % (39-53); RED BLOOD COUNT 2.97 M/uL (3.80-5.20); WHITE BLOOD COUNT 18.8 K/uL (4.1-10.2)
[2016-10-25 10:22] LABS: ANION GAP 8 MEQ/L (2-14); CHLORIDE 103 MEQ/L (99-109); POTASSIUM 4.1 MEQ/L (3.7-5.4); SAMPLE HEMOLYSIS CHECK 0; SAMPLE ICTERIC CHECK 0; SAMPLE LIPEMIA CHECK 0; SODIUM 135 MEQ/L (136-147)
[2016-10-25 10:29] LABS: GFR ESTIMATE (CALCULATED) 15 mL/min/; UREA NITROGEN (BUN) 33 mg/dL (9-23)
[2016-10-25 10:32] LABS: GLUCOSE 113 mg/dL (70-99)
[2016-10-25 16:05] VITALS: BP 122/58
[2016-10-25 19:38] VITALS: BP 138/62
[2016-10-26 00:35] VITALS: BP 158/69
[2016-10-26 01:11] LABS: ADD MIUA? YES; BILIRUBIN SMALL; BLOOD NEGATIVE; COLOR AMBER ((YELLOW)); GLUCOSE (STRIP) NEGATIVE; KETONES NEGATIVE; LEUKOCYTES SMALL; NITRITE NEGATIVE; PROTEIN (STRIP) 100; SPECIFIC GRAVITY 1.027 (1.000-1.030); UROBILINOGEN 0.2 MG/DL (0.2-1.0)
[2016-10-26 01:44] LABS: CASTS PRESENT /LPF; HYALINE CASTS 15-20 /LPF
[2016-10-26 01:45] LABS: CRYSTALS PRESENT; EPITHELIAL CELLS 1+ /HPF
[2016-10-26 01:46] LABS: BACTERIA 2+ /HPF; MUCUS NONE SEEN /LPF; RED BLOOD CELLS 0-5 /HPF (0-5); UCUL ADDED? YES; WHITE BLOOD CELLS 20-30 /HPF (0-5)
[2016-10-26 01:47] LABS: AMORPHOUS URATES CRYSTALS 2+
[2016-10-26 05:40] VITALS: BP 173/80
[2016-10-26 05:50] VITALS: BP 150/80
[2016-10-26 08:00] VITALS: BP 156/78
[2016-10-26 09:37] LABS: HEMATOCRIT 32.8 % (36.0-46.0); MCH 32.6 PG (29.0-34.0); MCHC 32.3 G/DL (30.0-36.0); MCV 100.9 FL (83-99); MEAN PLAT.VOLUME 10.6 uM^3 (9.5-12.4); NRBC (%) 0.3 /100 WBC (0-0); PLATELET COUNT 163 K/uL (156-360); RBC DIS.WIDTH-CV 23.5 % (11.8-14.6); RBC DIS.WIDTH-SD 84.4 % (39-53); RED BLOOD COUNT 3.25 M/uL (3.80-5.20)
[2016-10-26 10:07] LABS: HDL CHOLESTEROL 24 MG/DL (Desirable>=50); LDL CHOLESTEROL 25 mg/dL (Desirable<100); NON-HDL CHOLESTEROL 40 mg/dL (Desirable<160); TOTAL CHOLESTEROL 64 mg/dL (Desirable<200); TRIGLYCERIDES 76 MG/DL (Normal: <150)
[2016-10-26 15:34] VITALS: BP 97/57
[2016-10-26 21:44] VITALS: BP 116/55
[2016-10-27] VITALS: BP 129/59
[2016-10-27 04:00] VITALS: BP 136/63
[2016-10-27 06:03] LABS: HEMATOCRIT 31.3 % (36.0-46.0); MCH 31.3 PG (29.0-34.0); MEAN PLAT.VOLUME 10.6 uM^3 (9.5-12.4); NRBC (%) 0.1 /100 WBC (0-0); PLATELET COUNT 161 K/uL (156-360); RBC DIS.WIDTH-CV 23.5 % (11.8-14.6); RBC DIS.WIDTH-SD 86.5 % (39-53); WHITE BLOOD COUNT 18.8 K/uL (4.1-10.2)
[2016-10-27 07:17] VITALS: BP 128/60
[2016-10-27 11:07] VITALS: BP 99/56
[2016-10-27 15:06] VITALS: BP 113/54
[2016-10-27 20:20] VITALS: BP 119/56
[2016-10-28] VITALS (7 sets, daily range): BP systolic 108–133; BP diastolic 52–65
[2016-10-28 09:33] LABS: BASOPHIL COUNT 0.1 K/uL (0-0.1); EOSINOPHIL (%) 0.9 % (0-5); EOSINOPHIL COUNT 0.2 K/uL (0-0.3); HEMATOCRIT 32.1 % (36.0-46.0); IMMATURE GRANULOCYTE (%) 1.2 % (0.0-0.7); IMMATURE GRANULOCYTE COUNT 0.3 K/uL; INSTRUMENT ABS NEUTROPHIL CT 18.3 K/uL; LYMPHOCYTE COUNT 1.7 K/uL (1.0-2.8); MCH 31.8 PG (29.0-34.0); MCHC 30.8 G/DL (30.0-36.0); MCV 103.2 FL (83-99); MONOCYTE (%) 6.4 % (3-12); MONOCYTE COUNT 1.4 K/uL (0-0.8); NEUTROPHIL (%) 83.5 % (45-76); NEUTROPHIL COUNT 18.3 K/uL (1.8-6.4); NRBC (%) 0.1 /100 WBC (0-0); PLATELET COUNT 184 K/uL (156-360); RBC DIS.WIDTH-CV 23.3 % (11.8-14.6); RBC DIS.WIDTH-SD 87.4 % (39-53); RED BLOOD COUNT 3.11 M/uL (3.80-5.20); WHITE BLOOD COUNT 21.9 K/uL (4.1-10.2)
[2016-10-28 10:10] LABS: ANION GAP 9 MEQ/L (2-14); CHLORIDE 102 MEQ/L (99-109); GFR ESTIMATE (CALCULATED) 13 mL/min/; GLUCOSE 123 mg/dL (70-99); POTASSIUM 4.1 MEQ/L (3.7-5.4); SAMPLE HEMOLYSIS CHECK 0; SAMPLE ICTERIC CHECK 0; SAMPLE LIPEMIA CHECK 0; SODIUM 135 MEQ/L (136-147); UREA NITROGEN (BUN) 34 mg/dL (9-23)
[2016-10-29 03:40] VITALS: BP 133/64
[2016-10-29 07:24] VITALS: BP 151/67
[2016-10-29 07:31] LABS: HEMATOCRIT 32.3 % (36.0-46.0); MCH 31.5 PG (29.0-34.0); MCHC 30.3 G/DL (30.0-36.0); MCV 103.9 FL (83-99); MEAN PLAT.VOLUME 10.8 uM^3 (9.5-12.4); PLATELET COUNT 137 K/uL (156-360); RBC DIS.WIDTH-CV 22.9 % (11.8-14.6); RBC DIS.WIDTH-SD 87.6 % (39-53); RED BLOOD COUNT 3.11 M/uL (3.80-5.20); WHITE BLOOD COUNT 19.2 K/uL (4.1-10.2)
[2016-10-29 07:54] LABS: ANION GAP 9 MEQ/L (2-14); CHLORIDE 100 MEQ/L (99-109); SAMPLE HEMOLYSIS CHECK 1; SAMPLE ICTERIC CHECK 0; SAMPLE LIPEMIA CHECK 0; SODIUM 136 MEQ/L (136-147); UREA NITROGEN (BUN) 22 mg/dL (9-23)
[2016-10-29 07:57] LABS: GFR ESTIMATE (CALCULATED) 18 mL/min/; GLUCOSE 82 mg/dL (70-99); POTASSIUM 5.2 MEQ/L (3.7-5.4)
[2016-10-29 11:34] VITALS: BP 134/61
[2016-10-29 15:05] VITALS: BP 112/57
[2016-10-29 20:00] VITALS: BP 107/55
[2016-10-29 23:45] VITALS: BP 113/51
[2016-10-30] VITALS (8 sets, daily range): BP systolic 92–135; BP diastolic 51–63
[2016-10-30 12:57] LABS: EOSINOPHIL (%) 0.3 % (0-5); EOSINOPHIL COUNT 0.1 K/uL (0-0.3); HEMATOCRIT 29.8 % (36.0-46.0); IMMATURE GRANULOCYTE (%) 0.8 % (0.0-0.7); IMMATURE GRANULOCYTE COUNT 0.2 K/uL; INSTRUMENT ABS NEUTROPHIL CT 17.9 K/uL; LYMPHOCYTE COUNT 1.2 K/uL (1.0-2.8); MCHC 30.5 G/DL (30.0-36.0); MCV 104.9 FL (83-99); MEAN PLAT.VOLUME 10.6 uM^3 (9.5-12.4); MONOCYTE COUNT 1.2 K/uL (0-0.8); NEUTROPHIL COUNT 17.9 K/uL (1.8-6.4); NRBC (%) 0.1 /100 WBC (0-0); PLATELET COUNT 164 K/uL (156-360); RBC DIS.WIDTH-CV 22.4 % (11.8-14.6); RBC DIS.WIDTH-SD 87.8 % (39-53); RED BLOOD COUNT 2.84 M/uL (3.80-5.20); WHITE BLOOD COUNT 20.6 K/uL (4.1-10.2)
[2016-10-30 13:15] LABS: ANION GAP 9 MEQ/L (2-14); CHLORIDE 100 MEQ/L (99-109); POTASSIUM 4.8 MEQ/L (3.7-5.4); SAMPLE HEMOLYSIS CHECK 0; SAMPLE ICTERIC CHECK 0; SAMPLE LIPEMIA CHECK 0; SODIUM 134 MEQ/L (136-147)
[2016-10-30 13:29] LABS: GFR ESTIMATE (CALCULATED) 15 mL/min/
[2016-10-30 13:48] LABS: GLUCOSE 119 mg/dL (70-99); UREA NITROGEN (BUN) 34 mg/dL (9-23)
[2016-10-30 18:27] LABS: HEMATOCRIT 33.4 % (36.0-46.0); MCH 31.7 PG (29.0-34.0); MCHC 29.9 G/DL (30.0-36.0); MEAN PLAT.VOLUME 11.4 uM^3 (9.5-12.4); NRBC (%) 0.1 /100 WBC (0-0); PLATELET COUNT 147 K/uL (156-360); RBC DIS.WIDTH-CV 22.6 % (11.8-14.6); RBC DIS.WIDTH-SD 89.4 % (39-53); RED BLOOD COUNT 3.15 M/uL (3.80-5.20); WHITE BLOOD COUNT 21.5 K/uL (4.1-10.2)
[2016-10-30 18:30] LABS: ANION GAP 9 MEQ/L (2-14); CHLORIDE 99 MEQ/L (99-109); POTASSIUM 4.2 MEQ/L (3.7-5.4); SAMPLE HEMOLYSIS CHECK 0; SAMPLE ICTERIC CHECK 0; SAMPLE LIPEMIA CHECK 0; SODIUM 135 MEQ/L (136-147)
[2016-10-30 18:43] LABS: TROP-I INTERPRETATION NEGATIVE; TROPONIN-I < 0.01 ng/mL (0.0-0.30)
[2016-10-30] MEDS ORDERED: Zeasorb Antifungal T TP (18:54)
[2016-10-30] MEDS ORDERED: EMLA TP (18:54)
[2016-10-30 19:09] LABS: GFR ESTIMATE (CALCULATED) 39 mL/min/; GLUCOSE 97 mg/dL (70-99)
[2016-10-30 19:11] LABS: UREA NITROGEN (BUN) 12 mg/dL (9-23)
[2016-10-30 21:43] LABS: BASE EXCESS 3.8 mEq/L (-3 to +3); BICARBONATE 31.5 mEq/L (22-26); CARBOXY HGB 0 % (0-5)
[2016-10-30 21:44] LABS: PCO2 67 mm Hg (35-45); PO2 129 mm Hg (80-100); SITE RB; pH 7.28 (7.35-7.45)
[2016-10-30 21:45] LABS: COMMENTS - BLOOD GASES C+; DEVICE HFNC; FI02 100 %; O2 FLOW 30 L/MIN; TOTAL RESP RATE 14 resp/min
== END 2016-10-30 21:54 | disposition short-term general hospital (02) | DRG 853 ==
LOC: EME 17:49 → 3EAST 21:45 → EDOF 21:45 → ENRESERV 21:48 → 3EAST 10-17 00:54 → ENRESERV 10-26 10:58 → 5SOUTH 10-26 14:51 → ENRESERV 10-30 14:43 → 4EAST 10-30 15:36
PROVIDERS: Emergency Medicine; Family Medicine; Hospitalist; Internal Medicine; Internal Medicine Nephrology; Internal Medicine Pulmonary Disease; Surgery
DX: A41.9 Sepsis, unspecified organism (principal); A04.7 Enterocolitis due to Clostridium difficile; I63.9 Cerebral infarction, unspecified; N18.6 End stage renal disease; Z94.2 Lung transplant status; E11.22 Type 2 diabetes mellitus with diabetic chronic kidney disease; J96.11 Chronic respiratory failure with hypoxia; F05 Delirium due to known physiological condition; I47.1 Supraventricular tachycardia; Z75.1 Person awaiting admission to adequate facility elsewhere; T82.868A Thrombosis due to vascular prosthetic devices, implants and grafts, initial encounter; Y83.2 Surgical operation with anastomosis, bypass or graft as the cause of abnormal reaction of the patient, or of later complication, without mention of misadventure at the time of the procedure; N25.81 Secondary hyperparathyroidism of renal origin; I95.89 Other hypotension; D51.9 Vitamin B12 deficiency anemia, unspecified; I27.2 Other secondary pulmonary hypertension; N14.1 Nephropathy induced by other drugs, medicaments and biological substances; I87.1 Compression of vein; I70.8 Atherosclerosis of other arteries; E87.6 Hypokalemia; F43.21 Adjustment disorder with depressed mood; R62.7 Adult failure to thrive; T45.1X5A Adverse effect of antineoplastic and immunosuppressive drugs, initial encounter; I25.10 Atherosclerotic heart disease of native coronary artery without angina pectoris; I87.2 Venous insufficiency (chronic) (peripheral); J98.11 Atelectasis; I08.0 Rheumatic disorders of both mitral and aortic valves; D50.9 Iron deficiency anemia, unspecified; D63.1 Anemia in chronic kidney disease; K59.09 Other constipation; K29.60 Other gastritis without bleeding; R60.0 Localized edema; E78.5 Hyperlipidemia, unspecified; J61 Pneumoconiosis due to asbestos and other mineral fibers; Z66 Do not resuscitate; Z96.641 Presence of right artificial hip joint; Z86.711 Personal history of pulmonary embolism; Z87.891 Personal history of nicotine dependence; Z95.5 Presence of coronary angioplasty implant and graft; Z99.2 Dependence on renal dialysis
CPT/HCPCS: 36600; 70450; 70551; 71010; 71020; 78582; 80048; 80048 91; 80061; 80069; 80197 90; 81003; 82306; 82803; 82948; 83605; 84484; 85025; 85027; 86900; 86901; 86920; 87040; 87086; 87493; 92610 GN; 93005; 93306; 93880; 93971; 94640; 94640 76; 94760; 94799; 97530 GP; 99202; 99281; 99285; A9539; A9540; C1725; C1757; C1769; C1874; C1894; C2628; J0131; J0153; J0881; J1100; J1270; J1644; J1940; J2405; J3010; J3370; J7040; J7050; J7507; J7512; P9016; P9045; P9047; S0030